=== PATIENT | male | born 1970 | race Caucasian/White ===

== ENCOUNTER → 2022-06-22 | Day surgery (SDC) | payer BC, OTHER ==
[~2022-06-22] MED LIST: Lactated Ringers 1,000 ML IV SCH; Propofol 200 MG/20 ML SDV IV ONE; Sodium Chloride 0.9% 10 ML Syringe FLUSH PRN
== END | disposition home or self-care (01) ==
LOC: FB.SDS 06:15
PROVIDERS: ATTEND Surgery
DX: K20.90 Esophagitis, unspecified without bleeding (principal); K29.80 Duodenitis without bleeding; K44.9 Diaphragmatic hernia without obstruction or gangrene; F17.210 Nicotine dependence, cigarettes, uncomplicated; R63.4 Abnormal weight loss; Z98.890 Other specified postprocedural states
CPT/HCPCS: 00731-QZ; 88305; J2704; J7120